=== PATIENT | female | born 1980 | race Caucasian/White ===

== ENCOUNTER 2023-01-06 10:00 | Outpatient (RCR) | payer BC, SELFPAY | END 2023-05-18 14:39 | disposition home or self-care (01) | PROVIDERS: PCP Family Medicine; Visit Provider Family Medicine | DX: S37.10XS Unspecified injury of ureter, sequela (principal); R10.2 Pelvic and perineal pain; G89.29 Other chronic pain; M62.838 Other muscle spasm; Z51.89 Encounter for other specified aftercare | CPT/HCPCS: 97110; 97112; 97140; 97162 ==